=== PATIENT | female | born 1965 | race Caucasian/White ===

== ENCOUNTER 2020-05-17 11:50 | Emergency (ER) | payer MEDICAID ==
--- NOTE | 2020-05-17 12:47 | ER Document Report ---
ED General - General Stated Complaint: UNRESPONSIVE Time Seen by Provider: 05/17/20 12:39 Mode of Arrival: Wheelchair Information source: Friend Notes: 54-year-old female arrives by wheelchair from where she was not breathing in her friend's car. History is all from patient's friend who he reports they lived together. Her friend was driving both he and she to [employer] and he went inside to get something at [employer] and came back sometime later and she was not talking. Friend was unable to provide how much time he spent in [employer] because of his elderly nature. He drove her here to the ER and staff at front placed her in wheelchair and brought her to room #4 where it was found she had stiffness to her body especially jaw and arms and legs and chest. She appeared to be an early rigor. Patient's friend was in a wheelchair out front and initially was going to check a.m. but after he he was told the patient had he advised he will have to make some phone calls and take care of her. He also advised me that patient had a history of cancer just like the rest of her family and she had decided to have no surgery or treatment; he was unaware whether she was a DNR. Around 1-1/2-hour later it was found her Medicaid notices revealed she was from [facility] nursing staff found this and called her clinic where she is from. [place] [facility] [place]. TRAVEL OUTSIDE OF THE [place] IN LAST 30 DAYS: No - HPI Onset: Just prior to arrival Onset/Duration: Sudden Quality of pain: No pain Severity: Severe Pain Level: 0 Associated symptoms: None - Similar symptoms previously: No Recently seen / treated by doctor: No - unknown Past Medical History - General Information source: Friend - Social History Smoking Status: Unknown if Ever Smoked Cigarette use (# per day): No Chew tobacco use (# tins/day): No Smoking Education Provided: No Frequency of alcohol use: None - Unknown Drug Abuse: Other - Unknown Lives with: Friend Family History: Reviewed & Not Pertinent Patient has suicidal ideation: No - unk Patient has homicidal ideation: No - unk Review of Systems - Review of Systems -: Yes ROS unobtainable due to patient's medical condition Physical Exam - Vital signs Interpretation: Other - no VS - General General appearance: Unresponsive, Other - HEENT Head: Normocephalic, Other - but very cachectic Eyes: Pale conjunctiva Pupils: PERRL - Respiratory Respiratory status: No respiratory distress Chest status: Nontender Breath sounds: Normal Chest palpation: Normal - Cardiovascular Rhythm: Regular Heart sounds: Normal auscultation Murmur: No - Abdominal Inspection: Normal Distension: No distension Bowel sounds: Normal Tenderness: Nontender Organomegaly: No organomegaly - Rectal Hemorrhoids: Other - deferred - Genitourinary External exam: Normal - Back Back: Other - cachectic - Extremities General upper extremity: Other - cool to touch General lower extremity: Other - mottled cool to touch. No: Peter's sign - Neurological Neuro grossly intact: Yes Cognition: Normal Orientation: AAOx4 Alexis Coma Scale Eye Opening: Spontaneous Priscilla Coma Scale Verbal: Oriented Alexis Coma Scale Motor: Obeys Commands Alexis Coma Scale Total: 15 Speech: Normal Motor strength normal: LUE, RUE, LLE, RLE Sensory: Normal - Psychological Associated symptoms: Normal affect, Normal mood - Skin Skin Temperature: Warm Skin Moisture: Dry Skin Color: Normal Critical Care Note - Critical Care Note Comments: CPR code in progress until stopped 1156 Discharge - Discharge Clinical Impression: , Rigor mortis Condition: Poor Disposition: HOME, SELF-CARE Additional Instructions: Transfer tomorrow or to home
[2020-05-17] MEDS ORDERED: EPINEPHRINE INJ 1 MG/10 ML DISP.SYRIN ONE (15:51)
== END 2020-05-17 11:56 | disposition expired ==
LOC: ER 11:50
DX: R68.89 Other general symptoms and signs
CPT/HCPCS: 99283; J0171